=== PATIENT | female | born 1995 | race Caucasian/White ===

== ENCOUNTER → 2021-05-29 | Outpatient (CLI) | payer BC | LOC: KOH-I 15:13 | DX: J33.9 Nasal polyp, unspecified (principal) | CPT/HCPCS: 70486 ==

== ENCOUNTER → 2021-09-18 | Outpatient (CLI) | payer BC ==
[~2021-09-18] MED LIST: DRISDOL1250 MCG PO; HYDROCODON-ACE1 EAC2 PO; NAPROSYN500 MG PO; ZOFRAN 4 MG TAB4 MG PO
[2021-09-18 11:34] LABS: HEMOGLOBIN 12.7 gm/dl (12.3-15.3); RED BLOOD COUNT 4.3 M/UL (4.00-5.10); WHITE BLOOD COUNT 6.7 K/UL (4.5-11.0)
== END ==
LOC: OPSV2 10:30
PROVIDERS: Obstetrics & Gynecology
DX: Z01.812 Encounter for preprocedural laboratory examination (principal); N90.89 Other specified noninflammatory disorders of vulva and perineum
CPT/HCPCS: 36415; 81001; 85025

== ENCOUNTER → 2021-09-23 | Day surgery (SDC) | payer BC | END | disposition home or self-care (01) | LOC: OR 10:53 | DX: N90.89 Other specified noninflammatory disorders of vulva and perineum (principal); E28.2 Polycystic ovarian syndrome; K27.9 Peptic ulcer, site unspecified, unspecified as acute or chronic, without hemorrhage or perforation; N92.6 Irregular menstruation, unspecified; F41.9 Anxiety disorder, unspecified; Z20.822 Contact with and (suspected) exposure to COVID-19; Z88.0 Allergy status to penicillin; Z87.891 Personal history of nicotine dependence | CPT/HCPCS: 84703; J1100; J1580; J1885; J2001; J2250; J2405; J2704; J2795; J3010; J7120 ==

== ENCOUNTER 2022-07-09 05:29 | Inpatient (IN) | payer OTHER ==
[2022-07-09 06:05] LABS: HEMOGLOBIN 11.6 gm/dl (12.3-15.3); RED BLOOD COUNT 4.07 M/UL (4.00-5.10); WHITE BLOOD COUNT 8.8 K/UL (4.5-11.0)
[2022-07-09] MEDS ORDERED: HYDROCODON-ACE1 EAC6 PO (20:03)
[2022-07-09] MEDS ORDERED: IBUPROFEN600 MG PO (20:03)
[2022-07-09] MEDS ORDERED: COLACE 100MG C100 MG PO (20:03)
[2022-07-10 11:37] LABS: HEMOGLOBIN 9.6 gm/dl (12.3-15.3)
== END 2022-07-11 15:29 | disposition home or self-care (01) | DRG 806 ==
LOC: OB 05:29
PROVIDERS: ADMIT Obstetrics & Gynecology
PROC: 10H073Z Insertion of Monitoring Electrode into Products of Conception, Via Natural or Artificial Opening (ICD-10-PCS; 2022-07-09)
PROC: 10H07YZ Insertion of Other Device into Products of Conception, Via Natural or Artificial Opening (ICD-10-PCS; 2022-07-09)
PROC: 3E0234Z Introduction of Serum, Toxoid and Vaccine into Muscle, Percutaneous Approach (ICD-10-PCS; 2022-07-09)
PROC: 10E0XZZ Delivery of Products of Conception, External Approach (ICD-10-PCS; principal; 2022-07-09 19:14)
DX: O76 Abnormality in fetal heart rate and rhythm complicating labor and delivery (principal); O10.92 Unspecified pre-existing hypertension complicating childbirth; Z37.0 Single live birth; Z3A.39 39 weeks gestation of pregnancy; O99.344 Other mental disorders complicating childbirth; O99.284 Endocrine, nutritional and metabolic diseases complicating childbirth; E28.2 Polycystic ovarian syndrome; F32.A Depression, unspecified; O99.214 Obesity complicating childbirth; E66.9 Obesity, unspecified; O99.02 Anemia complicating childbirth; Z83.3 Family history of diabetes mellitus; Z82.49 Family history of ischemic heart disease and other diseases of the circulatory system; Z80.8 Family history of malignant neoplasm of other organs or systems; Z80.3 Family history of malignant neoplasm of breast; Z80.1 Family history of malignant neoplasm of trachea, bronchus and lung; Z81.8 Family history of other mental and behavioral disorders; Z82.0 Family history of epilepsy and other diseases of the nervous system; Z23 Encounter for immunization
CPT/HCPCS: 36415; 82800; 85014; 85018; 85025; 90715; J0690; J1200; J1956; J2250; J2274; J2370; J2405; J2590; J2795; J3010